=== PATIENT | female | born 1975 | race Caucasian/White ===

== ENCOUNTER → 2016-06-12 | Outpatient (CLI) | payer BC ==
[~2016-06-12] MED LIST: LORTAB 7.5/5001 TAB PO; MAGIC MOUTH PO; NO HOME MEDICATIONS; TAMIFLU 75MG75 MG PO; [UNRECOGNIZED DRUG - OTHER] TP
== END ==
LOC: MC.RAD 09:00
DX: Z12.31 Encounter for screening mammogram for malignant neoplasm of breast (principal)

== ENCOUNTER → 2017-06-18 | Outpatient (CLI) | payer BC | LOC: MC.RAD 09:16 | DX: Z12.31 Encounter for screening mammogram for malignant neoplasm of breast (principal) ==

== ENCOUNTER → 2018-06-30 | Outpatient (CLI) | payer BC | LOC: MC.RAD 07:55 | DX: Z12.31 Encounter for screening mammogram for malignant neoplasm of breast (principal) ==

== ENCOUNTER → 2018-08-04 | Outpatient (CLI) | payer BC | LOC: COL.RAD 08-03 07:30 | DX: R74.8 Abnormal levels of other serum enzymes (principal) ==

== ENCOUNTER 2019-12-02 09:12 | Day surgery (SDC) | payer BC ==
[~2019-12-02] VITALS: Ht 170.2 cm; Wt 52.6 kg
[2019-12-02 09:38] VITALS: BP 99/66; PULSE 43; TEMP 97.6
[2019-12-02] MEDS ORDERED: VALTREX1 GM PO (09:45)
[2019-12-02] MEDS ORDERED: ADVIL200 MG PO (09:46)
[2019-12-02 10:30] VITALS: BP 97/73; PULSE 44
--- NOTE | 2019-12-02 10:30 | NUR ---
Pt to GI bay 3 via cart from ENDO. Pt awake and alert. Pt denies pain or nausea. Pt ambulates to recliner with stand by assistance. Water given per pt request. Will continue to monitor. Call light within reach.
[2019-12-02 10:45] VITALS: BP 93/71; PULSE 42
--- NOTE | 2019-12-02 10:45 | NUR ---
Pt continues to rest. IV site discontinued with all parts intact. Pt up to dress. Call light within reach.
--- NOTE | 2019-12-02 10:55 | NUR ---
into see pt. Discharge instructions reviewed. Pt voices understanding.
--- NOTE | 2019-12-02 11:01 | NUR ---
Pt escorted to private car via wheel chair. Pt accompanied home by her .
== END 2019-12-02 11:02 | disposition home or self-care (01) ==
LOC: SDCO 09:12
DX: K64.1 Second degree hemorrhoids (principal); R15.9 Full incontinence of feces; D64.9 Anemia, unspecified; Z20.828 Contact with and (suspected) exposure to other viral communicable diseases
CPT/HCPCS: J2704; J7120

== ENCOUNTER → 2022-01-24 | Outpatient (CLI) | payer BC ==
[~2022-01-24] MED LIST changes: +ADVIL200 MG PO; +VALTREX1 GM PO
== END ==
LOC: COL.RAD 08:46
DX: K76.89 Other specified diseases of liver (principal)
CPT/HCPCS: A9575

== ENCOUNTER → 2022-06-30 | Outpatient (CLI) | payer BC ==
[2022-06-30] VITALS (7 sets, daily range): BP systolic 87–117; BP diastolic 60–77; PULSE 37–48; TEMP 97.8
[~2022-06-30] VITALS: Ht 170.2 cm; Wt 48.8 kg
[~2022-06-30] MED LIST changes: +CALCIUM 600-D 61 TAB PO; +EUTHYROX125 MCG PO; +VITAMIND3 5000 PO; +[UNRECOGNIZED DRUG - OTHER] PO; +viviscal
[2022-06-30 12:43] LABS: INR 0.9 (0.8-3.0); PROTHROMBIN TIME 10.7 SECONDS (9.7-12.8)
--- NOTE | 2022-06-30 13:10 | NUR ---
Dr Winkler in room, procedure started
--- NOTE | 2022-06-30 13:15 | NUR ---
liver tissue specimens put in formulin and labeled
--- NOTE | 2022-06-30 13:20 | NUR ---
bandaid over site, clean and dry, pt to rad holding area via w/c
== END ==
LOC: COL.RAD 06-27 06:30
PROVIDERS: Internal Medicine Gastroenterology
DX: R94.5 Abnormal results of liver function studies (principal)

== ENCOUNTER → 2023-09-14 | Outpatient (CLI) | payer BC ==
[2023-09-14] VITALS (9 sets, daily range): BP systolic 93–111; BP diastolic 60–78; PULSE 35–51; TEMP 97.4
[~2023-09-14] VITALS: Ht 170.2 cm; Wt 46.4 kg
[~2023-09-14] MED LIST changes: +K-DUR20 MEQ PO; +METAMUCIL0.52 G1 PO; +Midazolam 2 MG/2 ML VIAL IV SCH; +fentaNYL 50 MCG/ML 2 ML VIAL IV SCH
[2023-09-14 09:21] LABS: HEMOGLOBIN 11.5 g/dl (12.5-16.0); MEAN CELL VOLUME 104 fl (80.0-100.0); MEAN CORPUSCULAR HEMOGLOBIN 34 pg (27-31); MEAN CORPUSCULAR HGB CONC 33 g/dl (33.0-37.0); MEAN PLATELET VOLUME 9.9 fl (7.4-10.4); PLATELET COUNT 237 K/mm3 (130-400); RED BLOOD COUNT 3.38 M/mm3 (4.10-5.30); REDCELL DISTRIBUTION WIDTH-CV 14.5 % (11.5-14.5)
[2023-09-14 09:22] LABS: HEMATOCRIT 35.2 % (37.0-47.0)
[2023-09-14 09:38] LABS: LYMPHOCYTE 28 % (20.0-51.0); NEUTROPHILS 69 % (42.0-75.2); PLATELET ESTIMATE NORMAL (NORMAL)
--- NOTE | 2023-09-14 10:00 | NUR ---
PT WAS GIVEN 0.5MG VERSED AND 25 MCG OF FENTANYL
== END ==
LOC: COL.RAD 08:45
PROVIDERS: Radiology Diagnostic Radiology
DX: D53.9 Nutritional anemia, unspecified (principal)
CPT/HCPCS: C1830; J2250; J3010